=== PATIENT | male | born 1950 | race Caucasian/White ===

== ENCOUNTER → 2017-04-24 | Outpatient (CLI) | payer BC ==
--- NOTE | 2017-05-02 07:28 | CONS ---
DATE OF CONSULTATION: 04/24/2017 A 67-year-old gentleman has been evaluated in sleep center for possible obstructive sleep apnea hypopnea syndrome. HISTORY OF PRESENT ILLNESS/SLEEP WAKE EVALUATION: SLEEP SCHEDULE: The patient's usual sleep schedule from around 10 p.m. until 5: 15 a.m. on working days and he does not have regular schedule on weekend. FALLING ASLEEP: No problem with falling asleep. No TV in bedroom. DURING SLEEP: Patient sleeps on the back and side position with snoring, witnessed episodes of stopped breathing during the sleep, awakenings once with nocturia. DURING THE DAY/WAKE STATE: [place] sleepiness scale is 6. PAST SURGICAL HISTORY: Positive for right rotator cuff surgery. PAST MEDICAL HISTORY: None. MEDICATIONS: None. SOCIAL HISTORY: Negative for smoking. Alcohol consumption occasional beer. FAMILY HISTORY: Sleep apnea, snoring. REVIEW OF SYSTEMS: No fevers. No double vision. No recent chest pain. No shortness of breath. No abdominal pain. No bleeding episodes. No blood in urine. No seizure episodes. PHYSICAL EXAMINATION: During physical exam, a 67-year-old gentleman without distress. VITAL SIGNS: BP 122/78. HR 68. RR 16. Height 71, weight 143, BMI 19.9, temperature 98.4, oxygen saturation in room air 99%. HEENT: PERRLA, EOMI: Evaluation of oropharynx showed extremely low position of soft palate, Mallampati 4, retrognathia, asymmetric nasal passages, nasal septum deviation. NECK: Supple No JVD. Thyroid is not palpable. LUNGS: Clear to percussion and to auscultation. Good air exchange. No wheezing or rhonchi. HEART: S1, S2 regular. No murmurs, gallops or rubs. ABDOMEN: Soft and nontender. Bowel sounds are present. No organomegaly appreciated. EXTREMITIES: No clubbing or cyanosis. INSTRUCTIONAL LEADER: Awake, alert and oriented x3. Cranial nerves 2 to 7 intact. There is no fasciculation or atrophy noted. No focal deficits observed. IMPRESSION: 1. Snoring, witnessed episodes of stopped breathing during the sleep, awakenings from sleep with nocturia, extremely low position of soft palate, retrognathia, obstructive sleep apnea hypopnea syndrome. 2. Nasal septum deviation. 3. Status post right rotator cuff surgery. PLAN: 1. Polysomnography for evaluation of patient's breathing during sleep. 2. CPAP/BiPAP titration if sleep study confirms obstructive sleep apnea- hypopnea syndrome. 3. Preferable position during sleep on the side. 4. No driving if patient feels any sleepiness. Patient is aware of civil and criminal liability for unsafe driving. 5. I will see patient for follow-up visit to explain results of the testing and following plan. Thank you very much for referring this patient for consultation. Sincerely, Tiago Rodriguez MD, PhD, FAASM Diplomat of [place] [employer] Sleep Medicine Board by [place] [employer] Special[employer] [place] Board of Internal Medicine Agricultural Engineer of [facility] [place]. KEV
== END | disposition home or self-care (01) ==
LOC: SLEEP 13:42
PROVIDERS: ATTEND Internal Medicine
DX: G47.33 Obstructive sleep apnea (adult) (pediatric) (principal); J34.2 Deviated nasal septum
CPT/HCPCS: 99201

== ENCOUNTER → 2017-07-31 | Outpatient (CLI) | payer MEDICARE ==
--- NOTE | 2017-07-31 12:08 | PN ---
PROGRESS NOTE DATE OF SERVICE: 07/31/2017 This 67-year-old gentleman has been followed in the sleep center to discuss results of polysomnogram. I discussed results of polysomnogram with the patient and his in details. Results of sleep study showed that he has severe sleep apnea with apnea-hypopnea index 42.0, in REM sleep 60.0 with oxygen desaturation to 71.5%. Oxygen was below 88% or to 88% for 33 minutes during the sleep study. No significant periodic limb movements have been documented. Sleep efficiency decreased to 68% and sleep architecture showed extremely low percent of REM sleep only 1.1% and apnea-hypopnea index in REM sleep was 60. Subsequently, if you would have more REM sleep then apnea-hypopnea index would be more. [place] Sleepiness Scale today is 2. PHYSICAL EXAMINATION: During physical exam, patient in no distress. VITAL SIGNS: BP 125/75, HR 60, RR 16, height 5 feet 11 inches, weight 146, BMI 20.3, temperature 97.9, oxygen saturation at room air 98%. HEENT: PERRLA. EOMI. Oropharynx short distance between soft palate and posterior pharyngeal wall. No significant restriction of nasal breathing. Neck Supple, no JVD. Thyroid is not palpable. LUNGS Clear to percussion and to auscultation. Good air exchange. No wheezing or rhonchi. HEART S1, S2 regular. No murmurs, gallops, or rubs. ABDOMEN Soft and nontender. Bowel sounds are present. No organomegaly appreciated. EXTREMITIES No clubbing or cyanosis. ACCOUNTS SUPERVISOR Awake, alert, and oriented X3. Cranial nerves 2 to 7 intact. There is no fasciculation or atrophy. noted. No focal deficits observed. IMPRESSION: 1. Severe obstructive sleep apnea hypopnea syndrome. Apnea-hypopnea index 42.2 with oxygen desaturation to 71.5%. 2. Soft moderate snoring had been documented during the sleep study. PLAN: 1. CPAP titration for correction of respiratory abnormalities during sleep. 2. Losing weight. 3. Sleep hygiene with regular time in bed for at least 8 hours. 4. No driving if feeling any sleepiness. Thank you very much for allowing me to participate in management of your patient. Sincerely, Tiago Rodriguez MD, PhD, FAASM Diplomat of [place] Board of [employer] Specialties [place] Board of Internal Medicine Scalemaker of [facility] [place] KARENL / LENAN: [id number] /
== END ==
LOC: SLEEP 09:56
PROVIDERS: ATTEND Internal Medicine
DX: G47.33 Obstructive sleep apnea (adult) (pediatric) (principal)

== ENCOUNTER → 2021-01-24 | Outpatient (CLI) | payer MEDICARE ==
--- NOTE | 2021-01-24 15:21 | CONS ---
CONSULTATION DATE OF SERVICE: 01/24/2021 This 70-year-old gentleman had been re-evaluated in Sleep Center for obstructive sleep apnea-hypopnea syndrome. I saw patient in Sleep Center more than 3 years ago. The patient was diagnosed with obstructive sleep apnea-hypopnea syndrome in 2016. Since that time, patient is on treatment with CPAP and he continued to use his CPAP equipment every night. According to his while he is using CPAP, he does not snore and does not have any episodes of stopped breathing. His sleep schedule from 10 or 11 p.m. until 5:30 a.m. No problems with falling asleep. No TV in bedroom. He usually sleeps on the back position. He may wake up from sleep up to 2 times without any nocturia. No history of hypnagogic hallucinations, sleep paralysis or cataplexy. [place] Sleepiness Scale today is 6, which is normal. I checked his CPAP unit CPAP pressure of 9 cm of water as it was prescribed before. Usage 30 out of 30 nights for more than 4 hours. Average usage is 6.7 hours per night. Leak is 42 L/minute which is high. Apnea-hypopnea index 0.6, which is normal. MEDICATIONS: None. PAST SURGICAL HISTORY: Right rotator cuff surgery in October of 2016. SOCIAL HISTORY: Negative for smoking. Alcohol consumption occasional. FAMILY HISTORY: Sleep apnea. REVIEW OF SYSTEMS: No fevers. No double vision. No recent chest pain. No shortness of breath. No abdominal pain. No bleeding episodes. No blood in the urine. No seizures episodes. PHYSICAL EXAMINATION: GENERAL: gentleman without distress. VITAL SIGNS: BP 114/64, HR 65, RR 15, height 5 feet 11 inches, weight 157.4, temperature 98.5, oxygen saturation at room air 98%. HEENT: PERRLA, EOMI. Oropharynx extremely low position of soft palate. Mallampati 4. NECK: Supple, no JVD. Thyroid is not palpable. LUNGS: Clear to percussion and to auscultation. Good air exchange. No wheezing or rhonchi. HEART: S1, S2 regular. No murmurs, gallops, or rubs. ABDOMEN: Soft and nontender. Bowel sounds are present. No organomegaly appreciated. EXTREMITIES: No clubbing or cyanosis. HAND CLOTH CUTTER: Awake, alert, and oriented X3. Cranial nerves 2 to 7 intact. There is no fasciculation or atrophy. noted. No focal deficits observed. IMPRESSION: 1. Obstructive sleep apnea-hypopnea syndrome. The patient continues to use his CPAP equipment every night for the whole night, demonstrating 100% compliance with treatment, benefitting from treatment. 2. Status post right rotator cuff surgery. 3. Nasal septum deviation. PLAN: 1. Patient will continue to use CPAP equipment every night for the whole night with the same level of pressure. 2. I wrote prescription for necessary CPAP supplies including mask, heated tube, filters. 3. Sleep hygiene with regular time in bed for 7-1/2 to 8 hours. 4. No driving if feeling sleepiness. Thank you very much for allowing me to participate in management of your patient. Sincerely, Tiago Rodriguez MD, PhD, FAASM Diplomat of [place] [employer] of Medical Specialties [place] [employer] Board of Internal Medicine Scientologist of [facility] [place] MMODL / LENAN: [id number] /
== END ==
LOC: SLEEP 13:03
PROVIDERS: ATTEND Internal Medicine
DX: G47.33 Obstructive sleep apnea (adult) (pediatric) (principal); J34.2 Deviated nasal septum; Z47.31 Aftercare following explantation of shoulder joint prosthesis
CPT/HCPCS: 99201

== ENCOUNTER → 2022-01-24 | Outpatient (CLI) | payer MEDICARE ==
--- NOTE | 2022-01-24 16:03 | SFUN ---
SLEEP CENTER FOLLOW UP NOTE DATE OF SERVICE: 01/24/2022 71-year-old gentleman has been followed in Sleep Center for treatment of obstructive sleep apnea-hypopnea syndrome. The patient continues to use his CPAP unit every night. No snoring with the machine. He is getting his supplies in time. [place] Sleepiness Scale today is 5, which is in normal range. I checked his CPAP unit. Condition of air filter is average, needs to be replaced soon. CPAP pressure is 9 cm of water. Usage is 30/30 nights for more than 4 hours, average 6.8 hours per night. Great compliance. Leak is quite high 50 L/minute. Apnea- hypopnea index 0.9 normal. MEDICATIONS: None. PHYSICAL EXAMINATION: GENERAL: Patient in no distress. BP 115/74, HR 67, RR16, weight 162 pounds, height 5 feet 11 inches. The patient increased his weight 5 pounds. Temperature 97.3, oxygen saturation at room air 95% minutes. Oropharynx: Extremely low position of soft palate, Mallampati 4. NECK: Supple, no JVD. Thyroid is not palpable. LUNGS: Clear to percussion and to auscultation. Good air exchange. No wheezing or rhonchi. HEART: S1, S2 regular. No murmurs, gallops, or rubs. ABDOMEN: Soft and nontender. Bowel sounds are present. No organomegaly appreciated. EXTREMITIES: No clubbing or cyanosis. CONTAINER WASHER MACHINE: Awake, alert, and oriented X3. Cranial nerves 2 to 7 intact. There is no fasciculation or atrophy. noted. No focal deficits observed. IMPRESSION: 1. Obstructive sleep apnea-hypopnea syndrome. Patient demonstrated great compliance with treatment benefitting from treatment. Normal respiration on CPAP. 2. History of nasal septum deviation. 3. Status post right rotator cuff surgery. PLAN: 1. Patient will continue to use PAP equipment every night for the whole night. 2. Sleep hygiene with regular time in bed for at least 7-1/2 to 8 hours. 3. Precautions related to driving. No driving if feeling sleepiness. 4. I will maintain all necessary prescription for PAP supplies including mask, tube, filters. 5. Watching weight. 6. Follow-up visit in one year or earlier if patient has any problems. Thank you very much for allowing me to participate in the management of your patient. Sincerely, Tiago Rodriguez MD, PhD, FAASM Diplomat of [place] Board of Medical Specialties Sleep Medicine Board of [place] Board of Internal Medicine Boiler Shop Mechanic of [facility] [place] MMDESIRE / CHELITA: [id number] /
== END | disposition home or self-care (01) ==
LOC: SLEEP 13:04
PROVIDERS: ATTEND Internal Medicine
DX: G47.33 Obstructive sleep apnea (adult) (pediatric) (principal); Z98.890 Other specified postprocedural states

== ENCOUNTER → 2023-01-23 | Outpatient (CLI) | payer MEDICARE ==
--- NOTE | 2023-01-23 13:29 | P.PN ---
Subjective DATE: 01/23/2023 FOLLOW UP VISIT. Patient with obstructive sleep apnea hypopnea syndrome return to sleep center for follow-up visit. Information from previous visit have been reviewed. Patient is using PAP equipment every night for the whole night, getting PAP supplies in time. The patient does not have significant problems with the mask, PAP unit and humidification. [place] sleepiness scale is 6, which is normal. I checked information from PAP unit. PAP unit pressure 9 cm H2O. Usage is 100 % for more then 4 hours, average 7 hours per night. Leak is increased to 36.9 l/m. Apnea Hypopnea Index is 1.2, which is normal. MEDICATIONS: None During physical exam: GENERAL: A pleasant patient without any distress. VITAL SIGNS: BP 134/76, HR 64, RR 16 , weight 160, temperature 97.6, oxygen saturation at room air 99 % , BMI 22.9. HEENT: PERRLA, EOMI.low position of soft palate, Mallapati 4 . NECK: Supple. No JVD. LUNGS: Clear to percussion and to auscultation. Good air exchange. No wheezing or rhonchi. HEART: S1, S2 regular. ABDOMEN: Soft and nontender.[] EXTREMITIES: No clubbing or cyanosis. ANESTHESIOLOGIST ATTENDING: Awake, alert, and oriented x3. No focal deficit. Impressions: 1. Obstructive sleep apnea-hypopnea syndrome. Patient demonstrated great compliance with treatment, benefiting from treatment. 2. Status post right rotator cuff surgery. 3. Status post nasal septum deviation. 4. Status post left shoulder surgery in February 2022. Plan: 1. Continue using PAP equipment every night for the whole night. 2. To change air filter at least 1-2 times per month. 3. PAP unit should stay lower then position of the head. 4. Advised patient to remove all remaining water from humidifier canister daily and make it dry after each usage. Refill canister with fresh distilled water before each usage. 5. Sleep hygiene with regular time in bed for at least 8 hours. 6. Precautions related to driving. No driving if feel any sleepiness. 7. I will maintain prescription for PAP supplies including mask, tube, filters. 8. Follow up visit in 6 months or earlier if patient has any problems. 9. Watching weight. Thank you very much for allowing me to participate in the management of your patient. Tiago Rodriguez MD, PhD, FAASM. Diplomat of [place] Board of Sleep Medicine, Sleep Medicine Board by [place] Board of Internal Medicine Weaving Instructor of [facility] [place]
== END ==
LOC: SLEEP 13:02
PROVIDERS: ATTEND Internal Medicine
DX: G47.33 Obstructive sleep apnea (adult) (pediatric) (principal); Z99.89 Dependence on other enabling machines and devices; Z96.612 Presence of left artificial shoulder joint; J34.2 Deviated nasal septum
CPT/HCPCS: 99212

== ENCOUNTER → 2024-01-15 | Outpatient (CLI) | payer MEDICARE ==
--- NOTE | 2024-01-15 13:42 | P.PN ---
Subjective DATE: 01/15 2024 FOLLOW UP VISIT. Patient with obstructive sleep apnea hypopnea syndrome return to sleep center for follow-up visit. Information from previous visit have been reviewed. Patient is using PAP equipment every night for the whole night, getting PAP supplies in time. The patient does not have significant problems with the mask, PAP unit and humidification. [place] sleepiness scale is 4, which is normal. I checked information from PAP unit. PAP unit pressure is 9 cm H2O. Usage is 100% for more then 4 hours, average 6.5 hours per night. Leak is increased to 41.9 l/m. Apnea Hypopnea Index is 1.6, which is normal. MEDICATIONS:1. Vitamins During physical exam: GENERAL: A pleasant patient without any distress. VITAL please see below. HEENT: PERRLA, EOMI.low position of soft palate, Mallapati 4 . NECK: Supple. No JVD. LUNGS: Clear to percussion and to auscultation. Good air exchange. No wheezing or rhonchi. HEART: S1, S2 regular. ABDOMEN: Soft and nontender.[] EXTREMITIES: No clubbing or cyanosis. INDUCTION FURNACE OPERATOR: Awake, alert, and oriented x3. No focal deficit. Impressions: 1. Obstructive sleep apnea-hypopnea syndrome. Patient demonstrated great compliance with treatment, benefiting from treatment. 2. Status post left shoulder surgery in February 2022. 3. Status post surgery for nasal septal deviation. 4. Status post right rotator cuff surgery. Plan: 1. Continue using PAP equipment every night for the whole night. 2. To change air filter at least 1-2 times per month. 3. PAP unit should stay lower then position of the head. 4. Advised patient to remove all remaining water from humidifier canister daily and make it dry after each usage. Refill canister with fresh distilled water before each usage. 5. Sleep hygiene with regular time in bed for at least 8 hours. 6. Precautions related to driving. No driving if feel any sleepiness. 7. I will maintain prescription for PAP supplies including mask, tube, filters. 8. Watching weight. 9. Follow up visit in 12 months or earlier if patient has any problems. Thank you very much for allowing me to participate in the management of your patient. Tiago Rodriguez MD, PhD, FAASM. Diplomat of [place] Board of Sleep Medicine, Sleep Medicine Board by [place] Board of Internal Medicine Injection Moulding Machine Operator of [facility] [place] Objective - Vital Signs Vital signs: Vital Signs Temp 97.3 F L 01/15/24 13:23 Pulse 64 01/15/24 13:23 Resp 16 01/15/24 13:23 BP 120/75 01/15/24 13:23 Pulse Ox 100 01/15/24 13:23 FiO2 Intake & Output 01/14/24 01/15/24 01/15/24 18:59 06:59 18:59 Weight 74.389 kg
[2024-01-15 13:55] VITALS: BP 120/75; PULSE 64; RESP 16; TEMP 97.3
== END ==
LOC: 3 N SLEEP 13:12
PROVIDERS: ATTEND Internal Medicine
DX: G47.33 Obstructive sleep apnea (adult) (pediatric) (principal); Z98.890 Other specified postprocedural states; Z99.89 Dependence on other enabling machines and devices
CPT/HCPCS: 99212

== ENCOUNTER → 2024-05-19 | Outpatient (CLI) | payer MEDICARE ==
[2024-05-19 15:39] VITALS: BP 157/80; PULSE 60; RESP 16; TEMP 98.2
--- NOTE | 2024-05-19 16:27 | P.PROGSL ---
Subjective DATE: 05/19/2024 FOLLOW UP VISIT. Patient with obstructive sleep apnea hypopnea syndrome return to sleep center for follow-up visit. Information from previous visit have been reviewed. Patient is using PAP equipment every night for the whole night, getting PAP supplies in time. Heated humidifier does not work in CPAP unit. [place] sleepiness scale is increased to 11. I checked information from PAP unit. PAP unit pressure 9 cm H2O. Usage is 100% for more then 4 hours, average 6.7 hours per night. Leak is increased to 35 l/m. Apnea Hypopnea Index is 1.6, which is normal. MEDICATIONS have been reviewed, please see below. During physical exam: GENERAL: A pleasant patient without any distress. VITAL SIGNS: Please see below, weight is 155.8 lbs. HEENT: PERRLA, EOMI.low position of soft palate, Mallapati 4 . NECK: Supple. No JVD. LUNGS: Clear to percussion and to auscultation. Good air exchange. No wheezing or rhonchi. HEART: S1, S2 regular. ABDOMEN: Soft and nontender.[] EXTREMITIES: No clubbing or cyanosis. ORCHARD HAND: Awake, alert, and oriented x3. No focal deficit. Impressions: 1. Obstructive sleep apnea-hypopnea syndrome. Patient demonstrated great compliance with treatment, benefiting from treatment. Heated humidifier does not work in CPAP unit. CPAP unit is old. 2. Status post surgery for nasal septal deviation. 3. Status post left shoulder surgery. 4. Status post right rotator cuff surgery. Plan: 1. Continue using PAP equipment every night for the whole night. Prescription to replace CPAP unit, because again CPAP unit is old and heated humidifier does not work. 2. Sleep hygiene with regular time in bed for at least 7.5-8 hours 3. PAP unit should stay lower then position of the head. 4. Advised patient to remove all remaining water from humidifier canister daily and make it dry after each usage. Refill canister with fresh distilled water before each usage. 5. Watching weight. 6. Precautions related to driving. No driving if feel any sleepiness. 7. I will maintain prescription for PAP supplies including mask, tube, filters. 8. Follow up visit in 1-3 months after patient will get new CPAP unit or earlier if patient has any problems. Thank you very much for allowing me to participate in the management of your patient. Tiago Rodriguez MD, PhD, FAASM. Diplomat of [place] Board of Sleep Medicine, Sleep Medicine Board by [place] Board of Internal Medicine Supervisor Waterproofing of [facility] [place] cc: Mynor Leger MD Objective - Vital Signs Vital Signs: Vital Signs Temp 98.2 F 05/19/24 15:37 Pulse 60 05/19/24 15:37 Resp 16 05/19/24 15:37 BP 157/80 05/19/24 15:37 Pulse Ox 100 05/19/24 15:37 FiO2 Intake & Output 05/18/24 05/19/24 05/19/24 18:59 06:59 18:59 Weight 70.534 kg Home Medications: Home Medications Medication Instructions Recorded Confirmed Type No Known Home Medications 01/15/24 01/15/24 History
== END ==
LOC: 3 N SLEEP 14:56
PROVIDERS: ATTEND Internal Medicine
DX: G47.33 Obstructive sleep apnea (adult) (pediatric) (principal); Z98.890 Other specified postprocedural states; Z99.89 Dependence on other enabling machines and devices
CPT/HCPCS: 99212

== ENCOUNTER → 2024-08-26 | Outpatient (CLI) | payer MEDICARE ==
[2024-08-26 14:16] VITALS: BP 133/76; PULSE 64; RESP 16; TEMP 97.9
--- NOTE | 2024-08-26 14:36 | P.PROGSL ---
Subjective DATE: 08/26/2024 FOLLOW UP VISIT. Patient with obstructive sleep apnea hypopnea syndrome return to sleep center for follow-up visit. Patient received new CPAP unit and this is first visit after patient start using new CPAP equipment. Information from previous visit have been reviewed. Patient is using PAP equipment every night for the whole night, getting PAP supplies in time. The patient does not have significant problems with the mask, PAP unit and humidification. [place] sleepiness scale is 6, which is normal. I checked information from PAP unit. PAP unit pressure 9 cm H2O. Usage is 100% for more then 4 hours, average 6.5 hours per night. Leak is increased to 47.0 l/m. Apnea Hypopnea Index is 1.4, which is normal. MEDICATIONS have been reviewed, please see below. During physical exam: GENERAL: A pleasant patient without any distress. VITAL SIGNS: Please see below, weight is 157 lbs. HEENT: PERRLA, EOMI.low position of soft palate, Mallapati 4 . NECK: Supple. No JVD. LUNGS: Clear to percussion and to auscultation. Good air exchange. No wheezing or rhonchi. HEART: S1, S2 regular. ABDOMEN: Soft and nontender.[] EXTREMITIES: No clubbing or cyanosis. PRODUCTION SUPPORT SPECIALIST: Awake, alert, and oriented x3. No focal deficit. Impressions: 1. Obstructive sleep apnea-hypopnea syndrome. Patient demonstrated great compliance with treatment, benefiting from treatment. 2. Status post surgery for nasal septum deviation. 3. Status post rotator cuff surgery. 4. Status post left shoulder surgery. Plan: 1. Continue using PAP equipment every night for the whole night. 2. Sleep hygiene with regular time in bed for at least 7.5-8 hours 3. PAP unit should stay lower then position of the head. 4. Advised patient to remove all remaining water from humidifier canister daily and make it dry after each usage. Refill canister with fresh distilled water before each usage. 5. Watching weight. 6. Precautions related to driving. No driving if feel any sleepiness. 7. I will maintain prescription for PAP supplies including mask, tube, filters. 8. Follow up visit in 8 months or earlier if patient has any problems. Thank you very much for allowing me to participate in the management of your patient. Tiago Rodriguez MD, PhD, FAASM. Diplomat of [place] Board of Sleep Medicine, Sleep Medicine Board by [place] Board of Internal Medicine Topographical Field Assistant of [facility] [place] cc: Mynor Leger MD Objective - Vital Signs Vital Signs: Vital Signs Temp 97.9 F 08/26/24 14:15 Pulse 64 08/26/24 14:15 Resp 16 08/26/24 14:15 BP 133/76 08/26/24 14:15 Pulse Ox 95 08/26/24 14:15 FiO2 Home Medications: Home Medications Medication Instructions Recorded Confirmed Type No Known Home Medications 01/15/24 01/15/24 History
== END ==
LOC: 3 N SLEEP 14:07
PROVIDERS: ATTEND Internal Medicine
DX: G47.33 Obstructive sleep apnea (adult) (pediatric) (principal); Z98.890 Other specified postprocedural states; Z87.09 Personal history of other diseases of the respiratory system; Z99.89 Dependence on other enabling machines and devices
CPT/HCPCS: 99212

== ENCOUNTER → 2025-05-05 | Outpatient (CLI) | payer MEDICARE ==
[2025-05-05 13:38] VITALS: BP 129/75; PULSE 60; RESP 16; TEMP 97.9
--- NOTE | 2025-05-05 14:35 | P.PROGSL ---
Subjective DATE: 05/05/2025 FOLLOW UP VISIT. Patient with obstructive sleep apnea hypopnea syndrome return to sleep center for follow-up visit. Information from previous visit have been reviewed. Patient is using PAP equipment every night for the whole night, getting PAP supplies in time. The patient does not have significant problems with the mask, PAP unit and humidification. [place] sleepiness scale is 7, which is normal. I checked information from PAP unit. PAP unit pressure 9 cm H2O. Usage is 100% for more then 4 hours, average 6.7 hours per night. Leak is 34 l/m, which is in acceptable range. Apnea Hypopnea Index is 2.2, which is normal. MEDICATIONS have been reviewed, please see below. During physical exam: GENERAL: A pleasant patient without any distress. VITAL SIGNS: Please see below, weight is 155 lbs. HEENT: PERRLA, EOMI.low position of soft palate, Mall[place]ati 4 . NECK: Supple. No JVD. LUNGS: Clear to percussion and to auscultation. Good air exchange. No wheezing or rhonchi. HEART: S1, S2 regular. ABDOMEN: Soft and nontender.[] EXTREMITIES: No clubbing or cyanosis. CABLE ASSEMBLER: Awake, alert, and oriented x3. No focal deficit. Impressions: 1. Obstructive sleep apnea-hypopnea syndrome. Patient demonstrated great compliance with treatment, benefiting from treatment. 2. Status post rotator cuff surgery. 3. Status post surgical treatment for nasal septum deviation. 4. Status post left shoulder surgery. Plan: 1. Continue using PAP equipment every night for the whole night. 2. Sleep hygiene with regular time in bed for at least 7.5-8 hours 3. PAP unit should stay lower then position of the head. 4. Advised patient to remove all remaining water from humidifier canister daily and make it dry after each usage. Refill canister with fresh distilled water before each usage. 5. Watching weight. 6. Precautions related to driving. No driving if feel any sleepiness. 7. I will maintain prescription for PAP supplies including mask, tube, filters. 8. Follow up visit in 8 months or earlier if patient has any problems. Thank you very much for allowing me to participate in the management of your patient. Tiago Rodriguez MD, PhD, FAASM. Diplomat of [employer], Sleep Medicine Board by [employer] Teacher of [facility] [place] Objective - Vital Signs Vital Signs: Vital Signs Temp 97.9 F 05/05/25 13:36 Pulse 60 05/05/25 13:36 Resp 16 05/05/25 13:36 BP 129/75 05/05/25 13:36 Pulse Ox 96 05/05/25 13:36 FiO2 Intake & Output 05/04/25 05/05/25 05/05/25 18:59 06:59 18:59 Weight 70.307 kg Home Medications: Home Medications Medication Instructions Recorded Confirmed Type No Known Home Medications 01/15/24 01/15/24 History
== END ==
LOC: 3 N SLEEP 13:06
PROVIDERS: ATTEND Internal Medicine
DX: G47.33 Obstructive sleep apnea (adult) (pediatric) (principal); Z96.612 Presence of left artificial shoulder joint; Z99.89 Dependence on other enabling machines and devices; Z98.890 Other specified postprocedural states
CPT/HCPCS: 99212